=== PATIENT | male | born 1940 | race Caucasian/White ===

== ENCOUNTER 2020-05-10 16:48 | Inpatient (IN) | payer MEDICAID, OTHER ==
[~2020-05-10] VITALS: Ht 170.2 cm; Wt 61.2 kg
[2020-05-10 17:51] LABS: HEMOGLOBIN. 8.5 g/dL (14.0-18.0); MEAN CORPUSCULAR HEMOGLOBIN 24.6 pg (28.0-32.0); MEAN PLATELET VOLUME 7.9 fl (7.4-10.4); PLATELET 148 x1000/uL (130-400); RED BLOOD CELL COUNT 3.46 mill/uL (4.7-6.1); RED CELL DISTRIBUTION WIDTH 21.6 % (11.6-14.6)
[2020-05-10 17:58] LABS: CHLORIDE 103 mEq/L (98-107)
[2020-05-10 18:02] LABS: CLARITY URINE CLEAR (CLEAR); COLOR URINE YELLOW (YELLOW); INR 1.2; KETONES URINE NEGATIVE (NEGATIVE); LEUKOCYTE ESTERASE URINE NEGATIVE (NEGATIVE); NITRITE URINE NEGATIVE (NEGATIVE); OCCULT BLOOD URINE NEGATIVE (NEGATIVE); PROTEIN URINE 1+ (NEGATIVE); PROTHROMBIN TIME 12.4 sec (9.6-11.0); SPECIFIC GRAVITY URINE 1.019 (1.005-1.030); UROBILINOGEN URINE 0.2 E.U./dL (0.2-1.0)
[2020-05-10 18:30] LABS: PLATELET ESTIMATE NORMAL
[2020-05-10] MEDS ORDERED: SODIUM CHLORIDE 0.9% 1000ML BAG (SEPSIS BOLUS) IV ONE (19:30)
[2020-05-10] MEDS ORDERED: CEFTRIAXONE 1 G PREMIX 50 ML IV ONE (19:30)
[2020-05-10] MEDS ORDERED: ACETAMINOPHEN 650MG SUPP PR PRN ×2 (21:15)
[2020-05-10] MEDS ORDERED: DOCUSATE SODIUM 100MG CAPSULE PO PRN (21:15)
[2020-05-10] MEDS ORDERED: GUAIFENESIN 200MG/10ML SUGAR FREE UDC PO PRN (21:15)
[2020-05-10] MEDS ORDERED: HYDROCODONE/ACETAMINOPHEN 5/325MG TABLET PO PRN (21:15)
[2020-05-10] MEDS ORDERED: ACETAMINOPHEN 325MG TABLET PO PRN ×2 (21:15)
[2020-05-10] MEDS ORDERED: MAGNESIUM/ALUMINUM HYDROXIDE/SIMETHICONE 30ML UDC PO PRN (21:15)
[2020-05-10] MEDS ORDERED: DIPHENHYDRAMINE 50MG/ML VIAL IV PRN (21:15)
[2020-05-10] MEDS ORDERED: CLONIDINE 0.1MG TABLET PO PRN (21:15)
[2020-05-10] MEDS ORDERED: ONDANSETRON HCL 4MG/2ML INJ IV PRN (21:15)
[2020-05-10] MEDS ORDERED: NA PHOS,M-B/NA PHOS,DI-BA ENEMA 118ML PR PRN (21:15)
[2020-05-10] MEDS: ENOXAPARIN 40MG/0.4ML SYR SUBCUT SCH (21:53)
[2020-05-10] MEDS ORDERED: MAGNESIUM CITRATE 300ML SOLUTION PO SCH (23:00)
[2020-05-10] MEDS: LACTULOSE 20G/30ML UDC PO SCH (23:00)
[2020-05-10] MEDS: DOCUSATE SODIUM 250MG CAPSULE PO SCH (23:00)
[2020-05-10] MEDS: MORPHINE SULFATE 2 MG/ML CPJ (NOT FOR IM USE) IV PRN (23:02)
[2020-05-10] MEDS: SODIUM CHLORIDE 0.9% 1,000 ML IV SCH (23:03)
[2020-05-10 23:30] VITALS: BP 151/74
[2020-05-11] VITALS (10 sets, daily range): BP systolic 141–161; BP diastolic 74–88
[2020-05-11 06:09] LABS: MEAN CORPUSCULAR HEMOGLOBIN 24.8 pg (28.0-32.0); MEAN CORPUSCULAR VOLUME 75.4 fL (80.0-94.0); MEAN PLATELET VOLUME 8.1 fl (7.4-10.4); PLATELET 112 x1000/uL (130-400); RED BLOOD CELL COUNT 2.68 mill/uL (4.7-6.1); RED CELL DISTRIBUTION WIDTH 21.6 % (11.6-14.6)
[2020-05-11 06:15] LABS: CHLORIDE 108 mEq/L (98-107)
[2020-05-11] MEDS: LACTULOSE 20G/30ML UDC PO SCH ×3 (06:22→23:17)
[2020-05-11 06:26] LABS: HDL CHOLESTEROL 45 mg/dL (40-59)
[2020-05-11 06:27] LABS: LDL CHOLESTEROL 73 mg/dL (5-100)
[2020-05-11 08:27] LABS: HEMATOCRIT. 20.2 % (42.0-52.0); HEMOGLOBIN. 6.7 g/dL (14.0-18.0)
[2020-05-11] MEDS: MORPHINE SULFATE 2 MG/ML CPJ (NOT FOR IM USE) IV PRN (09:46)
[2020-05-11] MEDS: SODIUM CHLORIDE 0.9% 1,000 ML IV SCH ×3 (09:55→23:17)
[2020-05-11] MEDS: DOCUSATE SODIUM 250MG CAPSULE PO SCH (09:56)
[2020-05-11] MEDS ORDERED: MAGNESIUM CITRATE 300ML SOLUTION PO NR (11:00)
[2020-05-11] MEDS ORDERED: INFLUENZA VACCINE 05/PF 0.5 ML VIAL IM ONE (12:00)
[2020-05-11] MEDS ORDERED: PNEUMOCOCCAL 23-VAL P-SAC VAC 0.5 ML IM ONE (12:00)
[2020-05-11] MEDS: BICALUTAMIDE 50 MG TABLET PO SCH (13:37)
[2020-05-11 19:21] LABS: HEMATOCRIT 25.3 % (42.0-52.0); HEMOGLOBIN 8.3 g/dL (14.0-18.0)
[2020-05-11] MEDS ORDERED: CEFTRIAXONE 1 G PREMIX 50 ML IV SCH (21:00)
[2020-05-11] MEDS: ENOXAPARIN 40MG/0.4ML SYR SUBCUT SCH (23:17)
[2020-05-12] VITALS: BP 139/77
[2020-05-12] MEDS ORDERED: CEFTRIAXONE 1,000 MG in DEXTROSE 5% WATER 50 ML IV SCH
[2020-05-12 00:02] LABS: PLATELET ESTIMATE SLIGHTLY DECREASED
[2020-05-12 04:00] VITALS: BP 128/75
[2020-05-12] MEDS: LACTULOSE 20G/30ML UDC PO SCH (05:26)
[2020-05-12 05:38] VITALS: BP 139/77
[2020-05-12] MEDS: BICALUTAMIDE 50 MG TABLET PO SCH (08:13)
[2020-05-12] MEDS: DOCUSATE SODIUM 250MG CAPSULE PO SCH (08:13)
== END 2020-05-12 09:51 | disposition home or self-care (01) | DRG 500 ==
LOC: ER 17:11 → 6WST 20:29 → EDBEDREQTM 20:31 → EDBEDREQ 20:31 → EDBEDREQSVC 20:31 → ENRESERV 21:39
PROVIDERS: ADMIT Family Medicine; ATTEND Family Medicine
PROC: 30233N1 Transfusion of Nonautologous Red Blood Cells into Peripheral Vein, Percutaneous Approach (ICD-10-PCS; principal; 2020-05-11)
DX: C61 Malignant neoplasm of prostate (principal); C79.51 Secondary malignant neoplasm of bone; K59.00 Constipation, unspecified; N17.0 Acute kidney failure with tubular necrosis; R73.9 Hyperglycemia, unspecified; N40.1 Benign prostatic hyperplasia with lower urinary tract symptoms; E83.52 Hypercalcemia; E86.0 Dehydration; E43 Unspecified severe protein-calorie malnutrition; D63.0 Anemia in neoplastic disease; D50.9 Iron deficiency anemia, unspecified; Z85.3 Personal history of malignant neoplasm of breast; Z68.21 Body mass index [BMI] 21.0-21.9, adult
CPT/HCPCS: 36415; 71045; 74176; 80053; 80061; 81003; 83605; 83970; 84153; 84484; 85014; 85018; 85025; 86850; 86900; 86920; 90686; 90732; 93005; 93970; 99291; J0696; J1650; J2270; J7030; J7060; P9016; A4315; G0103